=== PATIENT | female | born 1975 | race Two or more races ===

== ENCOUNTER 2024-07-15 13:43 | Emergency (ER) | payer MEDICAID, SELFPAY ==
[2024-07-15 14:03] VITALS: BP 170/104; BP 178/103; PULSE 83; RESP 18; TEMP 37; O2SAT 97; BMI 21.0
--- NOTE | 2024-07-15 14:13 | EDNOTE_ITS ---
ED General RME/HPI General Chief complaint: Dental/Oral/Throat Stated complaint: Right face swelling, infected tooth Time Seen by Provider: 07/15/24 14:12 Arrival date/time: 07/15/24 13:43 CC: Right-sided facial swelling HPI ongoing for the past week, the patient was seen by her dentist who states they cannot do the tooth extraction because of the infection around to get, the patient states that the pharmacy just notified her that the prescriptions by the dentist have arrived to however the patient states she wants to try and get this going faster. The patient denies any difficulty swallowing difficulty speaking nausea vomiting diarrhea shortness of breath no other complaints vital signs are stable. Patient is mildly hypertensive tensive secondary to the pain. Related Data Home Medications ?Medication ?Instructions ?Recorded ?Confirmed ferrous sulfate [Iron (ferrous PO 01/08/20 sulfate)] Allergies Allergy/AdvReac Type Severity Reaction Status Date / Time morphine Allergy Intermediate Hives Verified 02/14/21 09:05 Review of Systems Review of Systems Narrative Review of Systems: GEN: No fever, no chills, no weight loss EYES: No discharge, no visual changes, no pain HEENT: + Dental pain, no ear pain, no congestion, no sore throat PULM: No shortness of breath, no cough, no congestion CV: No chest pain, no dyspnea on exertion, no palpitations GI: No nausea, no vomiting, no diarrhea, no pain, no constipation : No frequency, no urgency, no dysuria MUSC/SKEL: No joint pain, no back pain SKIN: No rash PSYCH: No hallucinations, no depression HEME/LYMPH: No easy bleeding or bruising tendencies NEURO: No weakness, no headache Past Medical History Past Medical History CARDIAC: Negative Congestive Heart Failure RESPIRATORY: Negative Chronic Obstructive Pulmonary Disease (COPD) GENITOURINARY: Negative Renal Disease ENDOCRINE: Positive Hyperthyroidism; Negative Diabetes Mellitus Type 1 or Diabetes Mellitus Type 2 HEMATOLOGIC: Positive Blood Disorders and Anemia Social History SMOKING STATUS: Former smoker SUBSTANCE USE: does not use ED Exam Narrative Physical exam: [General: In mild discomfort but not in any acute distress Head normocephalic HEENT: Face: Patient has right-sided facial edema, nontender to palpation there is no palpable firm mass. Mouth: [place] moist membranes from multiple teeth with significant caries overall poor dentition. Swallow symmetrical phonation is normal. Within acceptable limits Neck is supple nontender, no stridor no JVD no LAD Chest equal chest rise nontender to palpation Respiratory: Clear to auscultation no wheezes crackles or rubs CV: Rate rhythm is regular no murmurs rubs or clicks Skin: Intact no petechiae rash induration ulceration or crepitus Extremities: Moving all extremity against resistance cap refill less than 2 seconds neurosensory intact Neuro: Awake alert oriented x3 Glascow coma 15 no focal deficits] Course Quality Measures none Orders Category Date Time Status 1,000 mg IM w/Lido* 1% Med 07/15/24 14:13 Ordered cefTRIAXone [Rocephin] 1,000 mg Lidocaine 1% 20 ml [Xylocaine 1% 20 ML] 2.1 ml IM X1 Dexamethasone Inj [Decadron Inj] Med 07/15/24 14:13 Once 4 mg IM X1 ONE Vital Signs Vital signs: Vital Signs Temperature 98.6 F 07/15/24 14:03 Pulse Rate 83 07/15/24 14:03 Respiratory Rate 18 07/15/24 14:03 Blood Pressure 170/104 H 07/15/24 14:03 Pulse Oximetry (%) 97 07/15/24 14:03 Oxygen Delivery Method Room Air 07/15/24 14:03 MDM Patient data External records reviewed:: [facility] previous records Clinical information provided by:: patient Social determinants that could affect healthcare access:: none Patient has the following chronic illnesses:: None How is presenting disease/condition affected by chronic disease/condition?: uneffected by Evaluation data The following diagnostics were reviewed and interpreted by me:: other (specify) (None) Lab and/or radiology exams considered but not ordered:: None Interpretation Summary: Dental abscess Medications Medications considered but not ordered:: None Medication administrations:: Medication Administration History Ceftriaxone Sodium 1,000 mg/ (Lidocaine HCl 2.1 ml) 0 mg IM X1 ONE Stop: 07/15/24 14:14 Dexamethasone Sodium Phosphate (Dexamethasone Sod Phos Inj 4 Mg/Ml Vial) 4 mg IM X1 ONE; Protocol Stop: 07/15/24 14:14 None Consultations Consultation(s) initiated? (list below): No Diagnosis Differential Diagnosis ED Complaint MDM: Dental abscess dental pain dental caries Most likely diagnosis given after review of the tests above:: Dental abscess with dental caries Admission Indicated Admission indicated?: not indicated Explain why admission is indicated or not indicated:: Stable for outpatient follow-up Admission Request Was there a request for admission?: No Disposition Plan Disposition Plan: Discharge Discharge Attestation Discharge Attestation: The patient and all family members were given an opportunity to ask questions and understood the discharge instructions. Discharge instructions specifically effects, indications for sooner follow up or return to the emergency department, and the expected course of current diagnosis. Patient condition: Stable Medical Decision Making Differential Diagnosis Differential Diagnosis: Dental abscess dental pain dental caries Discharge Plan Plan Patient Disposition: HOME (Self Care) Prescriptions/Referrals Prescriptions/Med Rec: No Action ferrous sulfate PO Problem List Clinical Impression: Abscess, dental Patient/Caregiver Discharge Instructions Other Activity Instructions:: Take the medication as prescribed by your dentist, if there is worsening of symptoms return the emergency room for further evaluat ion. Use ibuprofen or Tylenol for pain. Education Materials: ED Dental Abscess Print Language: Zambian Stand Alone Forms: [place] Award Info., Patient Portal Info Letter, Work/School Release PA/WATER RECL[employer]ATION SYSTEMS OPERATOR Supervising Physician PA/WATER RECLAMATION SYSTEMS OPERATOR Supervising Physician: Kyle Pitts ENP
[2024-07-15] MEDS: cefTRIAXone 1,000 MG, LIDOCAINE 1% 20 ML 2.1 ML IM (14:34)
[2024-07-15] MEDS: DEXAMETHASONE SOD PHOS INJ 4 MG/ML VIAL IM (14:35)
[2024-07-15 15:11] VITALS: BP 143/89; PULSE 88
== END 2024-07-15 15:11 | disposition home or self-care (01) ==
LOC: SERX 14:43
PROVIDERS: Emergency Provider Emergency Medicine
DX: K04.7 Periapical abscess without sinus (principal)
CPT/HCPCS: 96372; 99283; J0696; J1100; J3490